=== PATIENT | female | born 1960 | race African-American/Black ===

== ENCOUNTER 2018-03-22 04:53 | Emergency (ER) | payer MEDICAID ==
[~2018-03-22] VITALS: Ht 167.6 cm; Wt 115.0 kg
[2018-03-22] MEDS ORDERED: IBUPROFEN 600MG TABLET PO ONE (06:30)
[2018-03-22 07:30] VITALS: BP 119/77
== END 2018-03-22 07:51 | disposition home or self-care (01) ==
LOC: ER 04:53
DX: M25.511 Pain in right shoulder (principal); M79.621 Pain in right upper arm; Z88.8 Allergy status to other drugs, medicaments and biological substances
CPT/HCPCS: 73030; 73060; 99284; A4565

== ENCOUNTER 2018-07-19 04:52 | Emergency (ER) | payer MEDICAID ==
[~2018-07-19] VITALS: Ht 172.7 cm; Wt 113.0 kg
[2018-07-19 04:59] VITALS: BP 145/94
== END 2018-07-19 10:00 | disposition home or self-care (01) ==
LOC: ER 04:52
DX: H61.23 Impacted cerumen, bilateral (principal); Z88.8 Allergy status to other drugs, medicaments and biological substances; Z98.890 Other specified postprocedural states
CPT/HCPCS: 69209; 69210; 99282

== ENCOUNTER 2024-11-09 18:12 | Emergency (ER) | payer BC, MEDICAID ==
[~2024-11-09] VITALS: Ht 167.6 cm; Wt 127.0 kg
[~2024-11-09 18:12] MED LIST: APIX5TAB PO; CLON0.1T PO
[2024-11-09 18:27] VITALS: O2SAT 100
[2024-11-09 19:56] LABS: CHLORIDE 102 mEq/L (98-107); POTASSIUM 3.4 mEq/L (3.5-5.1); SODIUM 140 mEq/L (136-145)
[2024-11-09 19:57] LABS: CALCIUM 9.2 mg/dL (8.7-10.4); CARBON DIOXIDE 27 mEq/L (21-32)
[2024-11-09 20:01] LABS: TROPONIN I HIGH SENSITIVITY 9 ng/L (3.0-34)
[2024-11-09 20:02] LABS: GLUCOSE 109 mg/dL (70-105); UREA NITROGEN BLOOD 15 mg/dL (9-23)
[2024-11-09 20:05] LABS: BASOPHILS % 0.6 % (0.0-2.0); EOSINOPHILS % 0.5 % (0.0-5.0); HEMATOCRIT. 39.4 % (36.0-48.0); LYMPHOCYTES % 35.8 % (20.0-50.0); MEAN CORPUSCULAR HEMOGLOBIN 28.2 pg (28.0-32.0); MEAN CORPUSCULAR VOLUME 85.5 fL (81.0-99.0); MEAN PLATELET VOLUME 8.5 fl (7.4-10.4); NEUTROPHILS % 56.1 % (40.0-76.0); PLATELET 355 x1000/uL (130-400); RED CELL DISTRIBUTION WIDTH 14.7 % (11.6-14.6); WHITE BLOOD COUNT 7.2 x1000/uL (4.5-11.0)
[2024-11-09] MEDS ORDERED: DILT120C88 MT (21:06)
[2024-11-09 21:48] VITALS: BP 138/93; PULSE 69; RESP 14; TEMP 36.7; O2SAT 95
== END 2024-11-09 21:44 | disposition home or self-care (01) ==
LOC: ER 18:12
DX: I48.91 Unspecified atrial fibrillation (principal); I10 Essential (primary) hypertension; Z98.890 Other specified postprocedural states; Z79.899 Other long term (current) drug therapy; Z79.01 Long term (current) use of anticoagulants; Z88.8 Allergy status to other drugs, medicaments and biological substances
CPT/HCPCS: 36415; 71045; 80048; 84484; 85025; 93005; 99291